=== PATIENT | female | born 1995 | race Caucasian/White ===

== ENCOUNTER 2024-08-20 14:32 | Emergency (ER) | payer OTHER ==
[~2024-08-20] VITALS: Ht 152.4 cm; Wt 90.0 kg
[2024-08-20 14:34] VITALS: PULSE 103; O2SAT 100
[2024-08-20 14:37] VITALS: BP 132/79; RESP 16; TEMP 98.8; O2SAT 99
[2024-08-20] MEDS ORDERED: METH4TAB95 MT (17:14)
== END 2024-08-20 18:00 | disposition home or self-care (01) ==
LOC: ER 14:32
DX: G56.01 Carpal tunnel syndrome, right upper limb (principal); J45.909 Unspecified asthma, uncomplicated
CPT/HCPCS: 73130; 99283